=== PATIENT | male | born 1970 | race Two or more races ===

== ENCOUNTER 2022-03-01 10:00 | Day surgery (SDC) | payer OTHER ==
[~2022-03-01] VITALS: Ht 167.6 cm; Wt 69.5 kg
[~2022-03-01 10:00] MED LIST: SODIUM CHLORIDE 0.9% 1,000 ML IV ONE
[2022-03-01] MEDS ORDERED: SODIUM CHLORIDE 0.9% 1,000 ML ONE (10:04)
[2022-03-01 10:17] LABS: COVID AG,FIA SOURCE NASAL SWAB
[2022-03-01] MEDS ORDERED: AMLO5TAB66 PO (10:24)
[2022-03-01] MEDS ORDERED: ATOR10TA69 PO (10:24)
[2022-03-01] MEDS ORDERED: PROPOFOL 1% 20 ML VIAL IVP ONE (12:00)
== END 2022-03-01 13:20 | disposition home or self-care (01) ==
LOC: SURGERY 10:00
PROVIDERS: ATTEND Surgery
DX: K62.89 Other specified diseases of anus and rectum (principal); K63.89 Other specified diseases of intestine; I10 Essential (primary) hypertension; Z79.899 Other long term (current) drug therapy; Z98.890 Other specified postprocedural states; Z91.018 Allergy to other foods
CPT/HCPCS: 45380; 87426; C1769; C9803; J2704; J7030; 88305